=== PATIENT | male | born 1985 | race Caucasian/White ===

== ENCOUNTER 2020-10-27 23:08 | Emergency (ER) | payer MEDICAID ==
[~2020-10-27] VITALS: Ht 162.6 cm; Wt 90.7 kg
[2020-10-27 23:30] VITALS: BP 140/90
--- NOTE | 2020-10-27 23:33 | NUR ---
TO LOBBY A/W BED AMBULATORY
--- NOTE | 2020-10-28 03:18 | NUR ---
PATIENT LEFT WITHOUT BEING SEEN BY DR. OREILLY. NO FURTHER CARE PROVIDED FOR PATIENT.
== END 2020-10-28 03:02 | disposition home or self-care (01) ==
LOC: MED 23:08
DX: L03.116 Cellulitis of left lower limb (principal); Z53.21 Procedure and treatment not carried out due to patient leaving prior to being seen by health care provider

== ENCOUNTER 2020-10-29 10:20 | Emergency (ER) | payer MEDICAID ==
[~2020-10-29] VITALS: Ht 162.6 cm; Wt 93.0 kg
[2020-10-29 10:30] VITALS: BP 159/92
--- NOTE | 2020-10-29 10:32 | NUR ---
Patient being evaluated by physician at [facility].
[2020-10-29 11:22] VITALS: BP 159/92
--- NOTE | 2020-10-29 11:22 | NUR ---
Patient discharged with v/s stable. Written and verbal after care instructions given and explained. Patient alert, oriented and verbalized understanding of instructions. Ambulatory with steady gait. All questions addressed prior to discharge. ID band removed. Patient advised to follow up with PMD. Rx of Keflex and Bactrim given. Patient educated on indication of medication including possible reaction and side effects. Opportunity to ask questions provided and answered.
== END 2020-10-29 11:22 | disposition home or self-care (01) ==
LOC: MED 10:20
DX: L03.116 Cellulitis of left lower limb (principal)
CPT/HCPCS: 99283